=== PATIENT | male | born 1980 | race Caucasian/White ===

== ENCOUNTER 2023-10-27 16:23 | Emergency (ER) | payer OTHER ==
[2023-10-27 16:32] VITALS: PULSE 76; RESP 18; BMI 32.5
[2023-10-27 19:43] LABS: BASO % 0.7 % (0-2.0); EOS % 3.3 % (0-4.5); HEMATOCRIT 50.2 % (35.4-49); HEMOGLOBIN 17.3 GM/dL (11.7-16.9); LYMPH % 13.8 % (8-40); MCH 30.8 pg (25.7-33.7); MCHC 34.5 g/dl (32.0-35.9); MEAN CELL VOLUME 89.5 fl (80-96); MEAN PLT VOLUME 7.8 fl (7.5-11.1); MONO % 7.7 % (3.8-10.2); NEUT % 74.5 % (42.8-82.8); PLATELET COUNT 195 10^3/uL (134-434); RBC 5.61 M/mm3 (4.00-5.60); RDW 12.8 % (11.9-15.9); WHITE BLOOD COUNT 5.5 K/mm3 (4.0-10.0)
[2023-10-27 19:44] LABS: EPI CELLS 3 /uL (0-25.1); HYALINE CASTS 0 /uL (0-3.1); PH,URINE 5.5 (5.0-8.0); URINE APPEARANCE CLEAR; URINE BACTERIA 0 /uL (0-1359); URINE BILIRUBIN NEGATIVE (NEGATIVE); URINE COLOR DK YELLOW; URINE GLUCOSE (UA) NEGATIVE (NEGATIVE); URINE KETONE NEGATIVE (NEGATIVE); URINE LEUK ESTERASE NEGATIVE (NEGATIVE); URINE NITRITE NEGATIVE (NEGATIVE); URINE PROTEIN 1+ (NEGATIVE); URINE RBC 10 /uL (0-23.9); URINE WBC 10 /uL (0-25.8)
[2023-10-27 20:03] LABS: CALCIUM 8.4 mg/dL (8.5-10.1)
[2023-10-27 20:04] LABS: ALBUMIN 3.1 g/dl (3.4-5.0); BLOOD UREA NITROGEN 20.5 mg/dL (7-18); MAGNESIUM 2.2 mg/dL (1.8-2.4)
[2023-10-27 20:07] LABS: CREATININE 0.9 mg/dL (0.55-1.3)
[2023-10-27 20:08] LABS: BILIRUBIN,TOTAL 0.6 mg/dL (0.2-1); TOT PROT 6.4 g/dl (6.4-8.2)
[2023-10-27 20:34] VITALS: BP 121/71; TEMP 98.5
== END 2023-10-27 23:11 | disposition home or self-care (01) ==
LOC: JER 16:23
DX: R53.1 Weakness (principal); L29.9 Pruritus, unspecified
CPT/HCPCS: 36415; 80053; 81003; 82550; 82553; 83735; 84100; 84443; 84484; 85025; 85651; 86038; 86235; 87086; 93005; 93010; 99284-25

== ENCOUNTER 2023-11-23 04:08 | Day surgery (SDC) | payer OTHER ==
[2023-11-18 12:25] VITALS: BMI 33.0
[2023-11-23] MEDS ORDERED: LIDOCAINE HCL/PF 2% SDV 5ML VIAL ONE (08:55)
[2023-11-23] MEDS ORDERED: PROPOFOL 20 ML ONE (08:55)
[2023-11-23] MEDS ORDERED: MIDAZOLAM HCL 2 MG/2 ML SINGLE DOSE VIAL ONE (08:55)
[2023-11-23] MEDS ORDERED: DEXAMETHASONE SOD PHOSPHATE 4 MG/1 ML VIAL ONE (09:37)
[2023-11-23] MEDS ORDERED: ceFAZolin SODIUM 1 GM VIAL ONE (09:37)
[2023-11-23] MEDS ORDERED: ONDANSETRON 4 MG/2 ML VIAL ONE (09:47)
[2023-11-23] MEDS ORDERED: KETOROLAC TROMETHAMINE 30 MG/1 ML VIAL ONE (09:47)
[2023-11-23] MEDS: ceFAZolin SODIUM 1 GM VIAL IVPB ONE (09:58)
[2023-11-23] MEDS ORDERED: PROMETHAZINE HCL 25 MG/1 ML VIAL IVPB PRN (10:11)
[2023-11-23] MEDS ORDERED: ONDANSETRON 4 MG/2 ML VIAL IVPUSH PRN (10:11)
[2023-11-23] MEDS ORDERED: oxyCODONE HCL 5 MG TABLET PO PRN ×2 (10:11)
[2023-11-23] MEDS ORDERED: ACETAMINOPHEN 1000 MG/100 ML BAG IVPB ONE (10:12)
[2023-11-23] MEDS ORDERED: LACTATED RINGERS SOLUTION 1,000 ML IV SCH (10:15)
[2023-11-23 10:53] VITALS: RESP 18
[2023-11-23] MEDS ORDERED: oxyCODONE HCL 5 MG TABLET ONE (10:54)
[2023-11-23] MEDS: oxyCODONE HCL 5 MG TABLET PO ONE (10:55)
[2023-11-23 11:43] VITALS: BP 117/72; PULSE 63; TEMP 98.4
== END 2023-11-23 11:40 | disposition home or self-care (01) ==
LOC: JASU-SURG 04:08
PROVIDERS: ATTEND Surgery Vascular Surgery
PROC: 0KB70ZX Excision of Right Upper Arm Muscle, Open Approach, Diagnostic (ICD-10-PCS; principal; 2023-11-23 09:00)
DX: M33.13 Other dermatomyositis without myopathy (principal)
CPT/HCPCS: 94760